=== PATIENT | male | born 1965 | race Asian ===

== ENCOUNTER 2023-01-13 08:38 | Day surgery (SDC) | payer OTHER ==
[~2023-01-13] VITALS: Ht 165.1 cm; Wt 87.1 kg
[2023-01-13] MEDS ORDERED: LIDOCAINE 2% 100 MG/5 ML UJET TP ONE (09:31)
[2023-01-13] MEDS ORDERED: MIDAZOLAM 5 MG/5 ML VIAL ONE (09:31)
[2023-01-13] MEDS ORDERED: diphenhydrAMINE 50 MG/ML VIAL ONE (09:31)
[2023-01-13] MEDS ORDERED: fentaNYL citrate 0.05 MG/ML VIAL ONE (09:31)
[2023-01-13] MEDS ORDERED: fentaNYL citrate 0.05 MG/ML VIAL IVP ONE (10:20)
[2023-01-13] MEDS ORDERED: MIDAZOLAM 2 MG/2 ML VIAL IVP ONE (10:20)
== END 2023-01-13 10:45 | disposition home or self-care (01) ==
LOC: MDS 08:38 → MMU 08:39 → MDS 10:45
PROVIDERS: ATTEND Internal Medicine Gastroenterology
DX: Z12.11 Encounter for screening for malignant neoplasm of colon (principal); K57.30 Diverticulosis of large intestine without perforation or abscess without bleeding; I10 Essential (primary) hypertension; Z79.899 Other long term (current) drug therapy
CPT/HCPCS: 45378; J2250; J3010; J1200